=== PATIENT | female | born 1985 | race American Indian/Alaskan Native ===

== ENCOUNTER 2017-12-23 13:37 | Emergency (ER) | payer SELFPAY ==
--- NOTE | 2017-12-23 15:49 | Emergency Department Report ---
ED Eye Problem HPI - General Chief complaint: Eye Problems Stated complaint: POSS PINK EYE Time Seen by Provider: 12/23/17 15:42 Source: patient Mode of arrival: Ambulatory Limitations: No Limitations - History of Present Illness Initial comments: does not wear contact lens chief complaint: eye pain, eye redness -: Gradual Onset Description: gradual Location: right eye Place: work If Injury: none Eye Symptoms: redness Severity: mild - Related Data Previous Rx's Medication Instructions Recorded Last Taken Type Polymyxin B Sulf/Trimethoprim 1 drop OP Q3H 7 Days #10 ml 12/23/17 Unknown Rx [Polytrim Eye Drops] Allergies Allergy/AdvReac Type Severity Reaction Status Date / Time No Known Allergies Allergy Verified 12/23/17 13:55 ED Review of Systems ROS: Stated complaint: POSS PINK EYE Other details as noted in HPI Constitutional: denies: fever, malaise Neurological: denies: numbness, paresthesias ED Past Medical Hx - Past Medical History Previous Medical History?: No - Surgical History Past Surgical History?: No - Social History Smoking Status: Current Every Day Smoker Substance Use Type: None - Medications Home Medications: Home Medications Medication Instructions Recorded Confirmed Last Taken Type Polymyxin B Sulf/Trimethoprim 1 drop OP Q3H 7 Days #10 ml 12/23/17 Unknown Rx [Polytrim Eye Drops] ED Physical Exam - General Limitations: No Limitations - Head Head exam: Present: atraumatic, normocephalic - Eye Eye exam: Present: conjunctival injection (temporal region right eye), other ( no discharge no proptosis no surrounding). Absent: nystagmus (no discharge), periorbital swelling, periorbital tenderness - Skin Skin exam: Absent: warm, dry, intact ED Course Vital Signs 12/23/17 13:51 Temperature 98.8 F Pulse Rate 93 H Respiratory 18 Rate Blood Pressure 106/70 O2 Sat by Pulse 99 Oximetry ED Medical Decision Making - Medical Decision Making conjunctivitis right eye possibly allergic due eyelash glue, rx: polytrim drops if infectious for the sake of her employer Critical care attestation.: If time is entered above; I have spent that time in minutes in the direct care of this critically ill patient, excluding procedure time. ED Disposition Clinical Impression: Acute conjunctivitis of right eye Disposition: DC-01 TO HOME OR SELFCARE Is pt being admited?: No Does the pt Need Aspirin: No Condition: Stable Instructions: Conjunctivitis (ED) Prescriptions: Polymyxin B Sulf/Trimethoprim [Polytrim Eye Drops] 1 drop OP Q3H 7 Days #10 ml Referrals: [facility] [Outside] - 3-5 Days
[2017-12-23 15:59] VITALS: BP 126/68
== END 2017-12-23 15:58 | disposition home or self-care (01) ==
LOC: ED 13:37
DX: H10.31 Unspecified acute conjunctivitis, right eye (principal); F17.200 Nicotine dependence, unspecified, uncomplicated
CPT/HCPCS: 99282

== ENCOUNTER 2019-10-16 14:25 | Emergency (ER) | payer SELFPAY ==
[2019-10-16 16:28] VITALS: BP 126/85
--- NOTE | 2019-10-16 17:49 | Event Note ---
ED Screening Note ED Screening Note: body aches fever chills This initial assessment/diagnostic orders/clinical plan/treatment(s) is/are subject to change based on patients health status, clinical progression and re- assessment by fellow clinical providers in the ED. Further treatment and workup at subsequent clinical providers discretion. Patient/guardian urged not to elope from the ED as their condition may be serious if not clinically assessed and managed. Initial orders include: xray ua
[2019-10-16] MEDS ORDERED: LORazepam 2 MG/ML VIAL ONE (18:02)
== END 2019-10-16 18:06 | disposition left against medical advice (07) ==
LOC: ED 14:25
DX: R50.9 Fever, unspecified (principal); R51 Headache; R63.0 Anorexia; Z53.21 Procedure and treatment not carried out due to patient leaving prior to being seen by health care provider
CPT/HCPCS: J2060